=== PATIENT | male | born 1985 | race African-American/Black ===

== ENCOUNTER → 2021-07-16 | Day surgery (SDC) | payer MEDICAID ==
[~2021-07-16] VITALS: Ht 175.3 cm; Wt 170.1 kg
[~2021-07-16] MED LIST: ALBUAER3 IN; ALBUTEROL SULFATE 90 MCG MDI IN ONE; ALLO300T2 PO; BUPIVACAINE HCL 50 ML ONE; COLC1TAB3 PO; CYCL-837 PO; DICL1.3P TD; EPINEPHrine HCL 1 MG/1 ML AMP ONE; GABA300C10 PO; HYDR-4072 PO; HYDROmorphone HCL 2 MG/ML VL IV ONE; HYDROmorphone HCL 2 MG/ML VL ONE; LIDOCAINE 2% (LOCAL ANESTH.) PF 5ml SDV ONE; LORazepam 2MG/ML-1ML VIAL IV ONE; MIDAZOLAM HCL 2MG/2ML 2ml VIAL (1mg/ml) ONE; OMEP20TA PO; ONDANSETRON HCL 4 MG/2 ML VIAL IV PRN; ONDANSETRON HCL 4 MG/2 ML VIAL ONE; PROPOFOL 10 MG/ML 20 ML IV ONE; QUET200T4 PO; ROPIVACAINE 0.5% (5MG/ML) 20ML AMPULE IJ ONE; SUCCINYLCHOLINE CHLORIDE 20 MG/ML 10ML VIAL IV ONE; ceFAZolin 1GM/50ML 150 ML IV ONE; fentaNYL CITRATE 10 ML ONE
[2021-07-16 09:16] LABS: BUN/Creatinine Ratio 11.1; Calcium 8.4 mg/dL (8.5-10.1)
[2021-07-16] MEDS: HYDROmorphone HCL 2 MG/ML VL IV PRN ×3 (11:30→12:32)
[2021-07-16 12:45] VITALS: BP 140/91
== END | disposition home or self-care (01) ==
LOC: SUR 07:56
PROVIDERS: ATTEND Orthopaedic Surgery
DX: S83.271A Complex tear of lateral meniscus, current injury, right knee, initial encounter (principal); M22.41 Chondromalacia patellae, right knee; F17.200 Nicotine dependence, unspecified, uncomplicated; F41.9 Anxiety disorder, unspecified; F32.9 Major depressive disorder, single episode, unspecified; K21.9 Gastro-esophageal reflux disease without esophagitis; M10.9 Gout, unspecified; Z82.49 Family history of ischemic heart disease and other diseases of the circulatory system; Z80.8 Family history of malignant neoplasm of other organs or systems; Z98.890 Other specified postprocedural states; Z79.899 Other long term (current) drug therapy; Z88.8 Allergy status to other drugs, medicaments and biological substances; Z20.822 Contact with and (suspected) exposure to COVID-19; X58.XXXA Exposure to other specified factors, initial encounter; Y92.89 Other specified places as the place of occurrence of the external cause; Y93.89 Activity, other specified; Y99.8 Other external cause status
CPT/HCPCS: 29883; 36415; 80048; C1713; J0171; J0330; J0690; J1170; J2001; J2250; J2405; J2704; J2795; J3010; J3490; U0003